=== PATIENT | male | born 1955 | race Caucasian/White ===

== ENCOUNTER 2018-01-29 08:23 | Day surgery (SDC) | payer OTHER ==
[~2018-01-29] VITALS: Ht 185.4 cm; Wt 100.2 kg
[~2018-01-29 08:23] MED LIST: Aspir-Low81 MG PO; CHOLESTEROL MED; HYDCHL12.5; HYDR1TAB94 PO; LISI5 PO; METF500; METF500 PO; Metformin HCl1000 MG PO; Multiple Vitam1 EAC1 PO; PRAV20 PO; PRAVASTATIN SOD10 MG PO; Prinivil10 MG PO; VARE1 UD
[2018-01-29] MEDS ORDERED: METF500 PO (09:57)
== END 2018-01-29 12:50 | disposition home or self-care (01) ==
LOC: ORSCSDS 08:23
PROVIDERS: Podiatrist Foot & Ankle Surgery
PROC: 0MQQ4ZZ Repair Right Ankle Bursa and Ligament, Percutaneous Endoscopic Approach (ICD-10-PCS; principal; 2018-01-29 10:30)
PROC: 0SBF4ZZ Excision of Right Ankle Joint, Percutaneous Endoscopic Approach (ICD-10-PCS; principal; 2018-01-29 10:30)
DX: M25.371 Other instability, right ankle (principal); M66.3 Spontaneous rupture of flexor tendons; I10 Essential (primary) hypertension; E11.9 Type 2 diabetes mellitus without complications; J44.9 Chronic obstructive pulmonary disease, unspecified; G47.33 Obstructive sleep apnea (adult) (pediatric); F17.210 Nicotine dependence, cigarettes, uncomplicated; Z79.899 Other long term (current) drug therapy
CPT/HCPCS: 82947; C1713; J0171; J0690; J1100; J1885; J2250; J2370; J2405; J3010; J7120

== ENCOUNTER 2018-12-03 08:39 | Day surgery (SDC) | payer OTHER ==
[~2018-12-03] VITALS: Ht 185.4 cm; Wt 100.8 kg
--- NOTE | 2018-12-03 11:18 | NUR ---
12/03/18 [address] BAUMAN MADE AWARE OF CONTINUED LOW BLOOD PRESSURE, NO NEW ORDERS RECEIVED
--- NOTE | 2018-12-03 12:49 | NUR ---
12/03/18 1249 Yasmine Sosa AT 1215 DC INSTRUCTIONS WERE REVIEWED W/PT AND HIS MARYLU. ALL QUESTIONS ANSWERED AND RX GIVEN FOR PERCOCET. PT AND SPOUSE MADE AWARE THAT NEXT AVAILABLE DOSE OF PAIN MED AVAILABLE AT 15:45 PT RECEIVED A TABLET AT 1145. COPIES OF ALL INSTRUCTIONS GIVEN IN FOLDER AND PT WAS DC'D VIA W/C TO PVT AUTO W/MIN. ASSIST NIVIA PO FLUIDS WELL AND HAD NO PAIN AND NO NAUSEA T/O RECOVERY
== END 2018-12-03 12:25 | disposition home or self-care (01) ==
LOC: ORSCSDS 08:39
PROVIDERS: Podiatrist Foot & Ankle Surgery
PROC: 0LQW0ZZ Repair Left Foot Tendon, Open Approach (ICD-10-PCS; principal; 2018-12-03 09:45)
DX: S86.311A Strain of muscle(s) and tendon(s) of peroneal muscle group at lower leg level, right leg, initial encounter (principal); E11.9 Type 2 diabetes mellitus without complications; G47.33 Obstructive sleep apnea (adult) (pediatric); Z79.899 Other long term (current) drug therapy; F17.210 Nicotine dependence, cigarettes, uncomplicated
CPT/HCPCS: 82947; J0690; J1100; J1885; J2250; J2370; J2405; J3010; J7120

== ENCOUNTER → 2023-01-06 | Outpatient (CLI) | payer MEDICARE, OTHER ==
[2023-01-06 14:50] LABS: Protein, Urine Random <5.0 mg/dL (0.0-11.9); Protein/Creat Ratio, Ur Random Unable to Calculate
== END | disposition home or self-care (01) ==
LOC: LAB SHORT 07:00 → LAB 07:00
PROVIDERS: Internal Medicine Nephrology
DX: N18.31 Chronic kidney disease, stage 3a (principal)
CPT/HCPCS: 82570; 84156

== ENCOUNTER → 2023-11-09 | Outpatient (CLI) | payer MEDICARE, OTHER ==
[2023-11-09 16:07] LABS: Adenovirus F 40/41 Not Detected (NOT DETECT); Astrovirus Not Detected (NOT DETECT); Campylobacter Sp Not Detected (NOT DETECT); Cryptosporidium Not Detected (NOT DETECT); Cyclospora Cayetanensis Not Detected (NOT DETECT); E. Coli O157 Not Detected (NOT DETECT); Entamoeba Histolytica Not Detected (NOT DETECT); Enteroaggregative E. coli-EAEC Not Detected (NOT DETECT); Enteropathogenic E. coli-EPEC Not Detected (NOT DETECT); Enterotoxigenic E. coli-ETEC Not Detected (NOT DETECT); Giardia Lamblia Not Detected (NOT DETECT); Norovirus GI/GII Not Detected (NOT DETECT); Plesiomonas Shigelloides Not Detected (NOT DETECT); Rotavirus A Not Detected (NOT DETECT); Salmonella Sp Not Detected (NOT DETECT); Sapovirus Not Detected (NOT DETECT); Shiga Toxin-prod E. coli-STEC Not Detected (NOT DETECT); Shigella/Enteroin E. coli-EIEC Not Detected (NOT DETECT); Vibrio Cholerae Not Detected (NOT DETECT); Vibrio Sp Not Detected (NOT DETECT); Yersinia Enterocolitica Not Detected (NOT DETECT)
[2023-11-10 12:40] LABS: Stool Occult Bld Immuno 1 Negative (NEGATIVE)
== END ==
LOC: LAB SHORT 08:00 → LAB 08:00
PROVIDERS: Family Medicine
DX: A08.39 Other viral enteritis (principal)
CPT/HCPCS: 87507; G0328